=== PATIENT | female | born 1990 | race Two or more races ===

== ENCOUNTER 2019-12-31 07:00 | Emergency (ER) | payer OTHER ==
[2019-12-31 07:28] VITALS: BMI 31.1
--- NOTE | 2019-12-31 08:11 | PDOC ---
Rapid Medical Evaluation Chief Complaint: Respiratory Time Seen by Provider: 12/31/19 07:55 Medical Evaluation: Allergies Allergy/AdvReac Type Severity Reaction Status Date / Time No Known Allergies Allergy Verified 12/31/19 07:29 Vital Signs Temp Pulse Resp BP Pulse Ox 99.6 F 121 H 17 122/79 98 12/31/19 07:56 12/31/19 07:56 12/31/19 07:56 12/31/19 07:56 12/31/19 07:56 12/31/19 08:05 HPI: The patient is a 29 y/o with no past medical history, who presents for cough, sore throat and chills for 3-4 days. The patient has no exposure to coronavirus. - Recent travel. She states went to her PMD 2 days ago and was swabbed for covid and awaiting results. She states no cxr done at that time. She is currently 28 weeks with no med hx. She has been tsking tylenol every 4 hours. She is with mild difficulty breathing, mild shortness of breath, no chest pain, no lightheadedness, dizziness nausea, vomiting, and diarrhea. Other 12 point ROS reviewed and negative. EXAM: General: NAD, well-appearing, AAO x3. tachy and low grade temp ENT: No rhinorrhea or nasal congestion. soft palate pink, mouth dry Neck: FROM, no midline tenderness Lungs: Clear to auscultation bilateral without wheezes rales or rhonchi. Normal excursion. Patient is able to speak in full sentences. Heart: tachy S1-S2 present, no murmurs rubs or gallops. Abdomen: Non-distended MSK/Extremities: no decreased ROM, no obvious deformities. No cyanosis Neuro: Normal gait, cranial nerves II through XII grossly intact. SKIN: No rashes, bruising. Color normal appearing A/P: Cough, chills, sob 28 weeks covid testing done by pcp 2 days ago CXR ordered 12/31/19 09:03 CXR with poor inspir effort. unable to r/o infiltrate repeat cxr and give more po fluids 12/31/19 09:06 12/31/19 09:53 repeat vs, tachy, 98.9, cxr shows left mid lung infiltrate. Pt will be swabbed for covid, flu, rsv Pt to the main ED , case discussed with attending [facility] Discharge Disposition - Diagnosis Cough - Referrals Referrals: Julio Huang [Primary Care Provider] - - Patient Instructions - Post Discharge Activity
[2019-12-31] MEDS ORDERED: ACETAMINOPHEN 1000 MG/100 ML VIAL (NON FORMULARY) IVPB ONE (10:46)
[2019-12-31] MEDS ORDERED: SODIUM CHLORIDE 0.9% 1000 ML INFUS.BAG IV ONE ×2 (10:46→15:35)
--- NOTE | 2019-12-31 10:48 | PDOC ---
History of Present Illness - General Chief Complaint: Respiratory Stated Complaint: COUGHING, 35 WEEKS Time Seen by Provider: 12/31/19 07:55 - History of Present Illness Initial Comments: 12/31/19 10:42 29 y/o with no past medical history, 28 weeks who presents for cough, sore throat and chills for 3-4 days. The patient has no exposure to coronavirus. - Recent travel. She states went to her PMD 2 days ago and was swabbed for covid and awaiting results. Tylenol every 4 hours. She is having difficulty breathing, shortness of breath, mild chest pain, no lightheadedness, dizziness nausea, vomiting, and diarrhea. Past History - Past Medical History Allergies/Adverse Reactions: Allergies Allergy/AdvReac Type Severity Reaction Status Date / Time No Known Allergies Allergy Verified 12/31/19 07:29 Home Medications: Ambulatory Orders Pnv No.95/Ferrous Fum/Folic AC [ Caplet] 1 each PO DAILY 12/31/19 COPD: No - Immunization History Immunization Up to Date: No - Psycho Social/Smoking Cessation Hx Smoking History: Never smoked Information on smoking cessation initiated: No Hx Alcohol Use: No Drug/Substance Use Hx: No Review of Systems - Review of Systems Comments:: 12/31/19 10:48 ROS: A complete review of 10 out of 10 review of systems is taken and is negative apart from what is previously mentioned below and in the HPI. *Physical Exam - Vital Signs Last Vital Signs Temp Pulse Resp BP Pulse Ox 98.9 F 119 H 19 107/71 97 12/31/19 09:57 12/31/19 09:57 12/31/19 09:57 12/31/19 09:57 12/31/19 09:57 - Physical Exam 12/31/19 10:49 Vitals: Triage Vital signs reviewed General Appearance: No acute distress, well nourished well developed, Head: Atraumatic, Neck: Supple; no Nucal rigidity Chest Wall: Nontender Cardiac: Regular rate and rhythym, no murmurs, no rubs, no gallops, Lungs: Crackles left chest abdomen: Soft, non distended, normal bowel sounds, non tender to palpation Extremities: Full range of motion to all extremities, no cyanosis, clubbing, or edema Skin: Warm and dry, no rashes or lesions, no rash, no petechiae Psych: Normal mood, normal affect ED Treatment Course - LABORATORY CBC & Chemistry Diagram: 12/31/19 11:05 12/31/19 11:05 Medical Decision Making - Medical Decision Making 12/31/19 10:49 28 weeks with fever tachycardia shortness of breath difficulty breathing 28 weeks . Did not have the capability to handle a at this age Patient will require Transfer to [facility] Discharge - Discharge Information Problems reviewed: Yes Clinical Impression/Diagnosis: Cough, Disposition: TRANSFER ACUTE CARE/OTHER HOSP - Follow up/Referral Referrals: Julio Huang [Primary Care Provider] - - Patient Discharge Instructions - Post Discharge Activity
[2019-12-31] MEDS ORDERED: ACETAMINOPHEN INJECTION 100 ML IVPB ONE (11:05)
[2019-12-31] MEDS ORDERED: AZITHROMYCIN 250 MG TABLET PO ONE (11:51)
[2019-12-31 11:52] LABS: BASO % 0.2 % (0-2.0); EOS % 0.2 % (0-4.5); HEMATOCRIT 34.4 % (32.4-45.2); HEMOGLOBIN 11.7 GM/dL (10.7-15.3); LYMPH % 14.1 % (8-40); MCH 29.3 pg (25.7-33.7); MCHC 33.9 g/dl (32.0-36.0); MEAN CELL VOLUME 86.2 fl (80-96); MEAN PLT VOLUME 8.2 fl (7.5-11.1); MONO % 4.4 % (3.8-10.2); NEUT % 81.1 % (42.8-82.8); PLATELET COUNT 163 K/MM3 (134-434); RBC 3.99 M/mm3 (3.60-5.2); RDW 13.2 % (11.6-15.6); WHITE BLOOD COUNT 7.4 K/mm3 (4.0-10.0)
[2019-12-31] MEDS ORDERED: AZITHROMYCIN 250 MG TABLET ONE (11:59)
[2019-12-31 12:16] LABS: ALBUMIN 2.4 g/dl (3.4-5.0); BILIRUBIN,TOTAL 1.3 mg/dL (0.2-1); BLOOD UREA NITROGEN 4.3 mg/dL (7-18); CALCIUM 7.3 mg/dL (8.5-10.1); CREATININE 0.5 mg/dL (0.55-1.3); POTASSIUM 3.3 mmol/L (3.5-5.1); TOT PROT 6.6 g/dl (6.4-8.2)
[2019-12-31 16:15] VITALS: BP 98/46; PULSE 106; TEMP 98.2
== END 2019-12-31 16:39 | disposition short-term general hospital (02) ==
LOC: JER 07:00
DX: O26.893 Other specified pregnancy related conditions, third trimester (principal); R05 Cough; Z3A.28 28 weeks gestation of pregnancy
CPT/HCPCS: 36415; 71045-TC-FY; 80053; 85025; 87804; 87807; 99285-25; J0131; J7030; U0002